=== PATIENT | female | born 1930 | race Caucasian/White ===

== ENCOUNTER 2018-11-13 11:10 | Emergency (ER) | payer MEDICARE, BC ==
--- NOTE | 2018-11-13 11:27 | ER Document Report ---
ED Medical Screen (RME) - General Chief Complaint: Chest Pain Stated Complaint: CHEST PAIN Time Seen by Provider: 11/13/18 11:21 Primary Care Provider: MICHELE LEAL MD [Primary Care Provider] - Follow up as needed Notes: 88-year-old female patient with a dual-chamber pacemaker, hyperlipidemia, no known coronary artery disease. Reports onset this morning of a banging headache on the top of her head and across her eyes, then she developed a burning sensation in her chest throat and jaw. She also complained of some blurred vision with her headache. While she was in the waiting room she reports she burped and it came up better tasting. I have greeted and performed a rapid initial assessment of this patient. A comprehensive ED assessment and evaluation of the patient, analysis of test results and completion of the medical decision making process will be conducted by additional ED providers. I have greeted and performed a rapid initial assessment of this patient. A comprehensive ED assessment and evaluation of the patient, analysis of test results and completion of the medical decision making process will be conducted by additional ED providers. TRAVEL OUTSIDE OF THE [place] IN LAST 30 DAYS: No - Related Data Allergies/Adverse Reactions: adhesive tape Allergy (Verified 11/13/18 11:21) Physical Exam - Vital signs Vitals: Temp Pulse Resp BP Pulse Ox 97.8 F 92 16 168/100 H 98 11/13/18 11:20 11/13/18 11:20 11/13/18 11:20 11/13/18 11:20 11/13/18 11:20 Course - Vital Signs Vital signs: Temp Pulse Resp BP Pulse Ox 97.8 F 92 16 168/100 H 98 11/13/18 11:20 11/13/18 11:20 11/13/18 11:20 11/13/18 11:20 11/13/18 11:20 Doctor's Discharge - Discharge Referrals: MICHELE LEAL MD [Primary Care Provider] - Follow up as needed
[2018-11-13 11:54] LABS: ABSOLUTE BASOPHILS # (AUTO) 0.1 10^3/uL (0.0-0.2); ABSOLUTE EOSINOPHILS # (AUTO) 0.2 10^3/uL (0.0-0.6); ABSOLUTE LYMPHOCYTES (AUTO) 3.4 10^3/uL (0.5-4.7); ABSOLUTE MONOCYTES (AUTO) 0.7 10^3/uL (0.1-1.4); ABSOLUTE NEUT (AUTO) 3.8 10^3/uL (1.7-8.2); BASOPHILS % (AUTO) 0.9 % (0-2); EOSINOPHILS % (AUTO) 2.1 % (0-6); HEMATOCRIT 42.4 % (36.0-47.0); HEMOGLOBIN 14.3 g/dL (12.0-15.5); LYMPHOCYTES % (AUTO) 41.6 % (13-45); MEAN CORPUSCULAR HEMOGLOBIN 31.4 pg (27.0-33.4); MEAN CORPUSCULAR HGB CONC 33.7 g/dL (32.0-36.0); MEAN CORPUSCULAR VOLUME 93 fl (80-97); MONOCYTES % (AUTO) 8.6 % (3-13); PLATELET COUNT 125 10^3/uL (150-450); RED BLOOD COUNT 4.55 10^6/uL (3.72-5.28); RED CELL DISTRIBUTION WIDTH 15.5 % (11.5-14.0); SEGMENTED NEUTROPHILS % (AUTO) 46.8 % (42-78); TOTAL CELLS COUNTED % (AUTO) 100 %; WHITE BLOOD COUNT 8.1 10^3/uL (4.0-10.5)
[2018-11-13 11:58] LABS: AMORPHOUS SEDIMENT,URINE TRACE /HPF; APPEARANCE,URINE CLOUDY; BILIRUBIN,URINE NEGATIVE (NEGATIVE); COLOR,URINE YELLOW; GLUCOSE, URINE NEGATIVE (NEGATIVE); KETONES,URINE NEGATIVE (NEGATIVE); LEUKOCYTE ESTERASE,URINE NEGATIVE (NEGATIVE); NITRITE,URINE NEGATIVE (NEGATIVE); PROTEIN,URINE NEGATIVE (NEGATIVE); URINE SPECIFIC GRAVITY 1.009; UROBILINOGEN,URINE NEGATIVE mg/dL (<2.0)
[2018-11-13 12:11] LABS: ALANINE AMINOTRANSFERASE 40 U/L (9-52); ALBUMIN 4.3 g/dL (3.5-5.0); ALKALINE PHOSPHATASE 90 U/L (38-126); ANION GAP 8 (5-19); ASPARTATE AMINO TRANSFERASE 45 U/L (14-36); BILIRUBIN,DIRECT 0.1 mg/dL (0.0-0.4); BILIRUBIN,TOTAL 0.5 mg/dL (0.2-1.3); BLOOD UREA NITROGEN 19 mg/dL (7-20); CALCIUM 10.9 mg/dL (8.4-10.2); CARBON DIOXIDE 31 mmol/L (22-30); CHLORIDE 104 mmol/L (98-107); CREATINE KINASE 61 U/L (30-135); GLUCOSE 86 mg/dL (75-110); POTASSIUM 4.2 mmol/L (3.6-5.0); SODIUM 142.8 mmol/L (137-145); TOTAL PROTEIN 7.6 g/dL (6.3-8.2)
--- NOTE | 2018-11-13 12:14 | RADIOLOGY REPORT (SQ) ---
EXAM DESCRIPTION: CHEST SINGLE VIEW COMPLETED DATE/TIME: 11/13/2018 12:08 pm REASON FOR STUDY: Chest pain COMPARISON: None. EXAM PARAMETERS: NUMBER OF VIEWS: One view. TECHNIQUE: Single frontal radiographic view of the chest acquired. RADIATION DOSE: NA LIMITATIONS: None. FINDINGS: LUNGS AND PLEURA: No opacities, masses or pneumothorax. No pleural effusion. MEDIASTINUM AND HILAR STRUCTURES: No masses. Contour normal. HEART AND VASCULAR STRUCTURES: Heart normal in size. Normal vasculature. BONES: No acute findings. HARDWARE: Battery pack and leads are in place. OTHER: No other significant finding. IMPRESSION: NO ACUTE RADIOGRAPHIC FINDING IN THE CHEST. TECHNICAL DOCUMENTATION: JOB ID: [id number] [employer]- All Rights Reserved Reading location - IP/workstation name: [email or web address]
[2018-11-13 12:23] LABS: CREATINE KINASE MB 2.38 ng/mL (<4.55); TROPONIN I 0.019 ng/mL
--- NOTE | 2018-11-13 13:22 | RADIOLOGY REPORT (SQ) ---
EXAM DESCRIPTION: CT HEAD WITHOUT COMPLETED DATE/TIME: 11/13/2018 1:16 pm REASON FOR STUDY: headache COMPARISON: None. TECHNIQUE: Axial images acquired through the brain without intravenous contrast. Images reviewed wi th bone, brain and subdural windows. Additional sagittal and coronal reconstructions were generated. Images stored on PACS. All CT scanners at this facility use dose modulation, iterative reconstruction, and/or weight based d osing when appropriate to reduce radiation dose to as low as reasonably achievable (ALARA). [facility]: Dose Right [facility]: CareDose [facility]: Dose Right [facility]: Teradose 4D [facility]: [employer] RADIATION DOSE: CT Rad equipment meets quality standard of care and radiation dose reduction techniq ues were employed. CTDIvol: 53.2 mGy. DLP: 1070 mGy-cm. mGy. LIMITATIONS: None. FINDINGS: VENTRICLES: Normal size and contour. CEREBRUM: No masses. No hemorrhage. No midline shift. No evidence for acute infarction. Few scatte red areas of low density in the white matter most likely chronic small vessel ischemic changes. CEREBELLUM: No masses. No hemorrhage. No alteration of density. No evidence for acute infarction. EXTRAAXIAL SPACES: No fluid collections. No masses. ORBITS AND GLOBE: No intra- or extraconal masses. Normal contour of globe without masses. CALVARIUM: No fracture. PARANASAL SINUSES: No fluid or mucosal thickening. SOFT TISSUES: No mass or hematoma. OTHER: No other significant finding. IMPRESSION: No acute intracranial pathology. No noncontrast CT findings to explain headache. Small vessel white matter disease. EVIDENCE OF ACUTE STROKE: NO. COMMENT: Quality ID # [id number]: Final reports with documentation of one or more dose reduction techniques (e.g., Automated exposure control, adjustment of the mA and/or kV according to patient size, use of iterative reconstruction technique) TECHNICAL DOCUMENTATION: JOB ID: [id number] [employer]- All Rights Reserved Reading location - IP/workstation name: [email or web address]
--- NOTE | 2018-11-13 15:08 | ER Document Report ---
Entered by DANNA STALEY SCRIBE 11/13/18 1232 Acting as scribe for:UYEN MONTES DO ED General - General Chief Complaint: Chest Pain Stated Complaint: CHEST PAIN Time Seen by Provider: 11/13/18 11:21 Primary Care Provider: MICHELE LEAL MD [Primary Care Provider] - Follow up tomorrow Information source: Patient Notes: 88-year-old female who presents to the emergency department today with complaints of a chest and throat "burning" sensation with an associated headache and blurred vision. Patient mentions that she has had a "rough week". Patient states that multiple things have happened over the last week including her dog getting sick, a sink leaking, and a follow up appointment for her known skin cancer. Patient denies any difficulty talking or confusion during this. TRAVEL OUTSIDE OF THE [place] IN LAST 30 DAYS: No - Related Data Allergies/Adverse Reactions: adhesive tape Allergy (Verified 11/13/18 11:21) Past Medical History - General Information source: Patient, [facility] Records - Social History Smoking Status: Never Smoker Cigarette use (# per day): No Chew tobacco use (# tins/day): No Frequency of alcohol use: None Drug Abuse: None Lives with: Family Family History: Reviewed & Not Pertinent Patient has suicidal ideation: No Patient has homicidal ideation: No - Past Medical History Cardiac Medical History: Reports: Hx Hypertension Psychiatric Medical History: Reports: Hx Depression Past Surgical History: Reports: Hx Cardiac Surgery - pacemaker, Hx Hysterectomy, Hx Orthopedic Surgery - left shoulder Review of Systems - Review of Systems Constitutional: No symptoms reported EENT: See HPI, Blurred vision Cardiovascular: See HPI, Chest pain - described as a burning sensation Respiratory: No symptoms reported Gastrointestinal: No symptoms reported Genitourinary: No symptoms reported Female Genitourinary: No symptoms reported Musculoskeletal: No symptoms reported Skin: No symptoms reported Hematologic/Lymphatic: No symptoms reported Neurological/Psychological: See HPI, Headaches. denies: Confusion -: Yes All other systems reviewed and negative Physical Exam - Vital signs Vitals: Temp Pulse Resp BP Pulse Ox 97.8 F 92 16 168/100 H 98 11/13/18 11:20 11/13/18 11:20 11/13/18 11:20 11/13/18 11:20 11/13/18 11:20 Interpretation: Normal - General General appearance: Appears well, Alert - HEENT Head: Normocephalic, Atraumatic Eyes: Normal Pupils: PERRL - Respiratory Respiratory status: No respiratory distress Chest status: Nontender, Other - pacemaker in L chest Breath sounds: Normal Chest palpation: Normal - Cardiovascular Rhythm: Regular Heart sounds: Normal auscultation Murmur: No - Abdominal Inspection: Normal Distension: No distension Bowel sounds: Normal Tenderness: Nontender Organomegaly: No organomegaly - Back Back: Normal, Nontender - Extremities General upper extremity: Normal inspection, Nontender, Normal color, Normal ROM, Normal temperature General lower extremity: Normal inspection, Nontender, Normal color, Normal ROM, Normal temperature, Normal weight bearing. No: Little's sign - Neurological Neuro grossly intact: Yes Cognition: Normal Orientation: AAOx4 Lucia Coma Scale Eye Opening: Spontaneous [place] Coma Scale Verbal: Oriented [place] Coma Scale Motor: Obeys Commands Lucia Coma Scale Total: 15 Speech: Normal Motor strength normal: LUE, RUE, LLE, RLE Sensory: Normal - Psychological Associated symptoms: Normal affect, Normal mood - Skin Skin Temperature: Warm Skin Moisture: Dry Skin Color: Normal Course - Re-evaluation Re-evalutation: 11/13/18 15:06 Patient appears well and has had no further symptoms. Pacemaker has been in terrogated with no events. Patient with no acute findings on blood work including 2- troponins. EKG with paced rhythm. Imaging within normal limits. Patient feels well would like to go home. She is to follow-up with her doctor on Friday. Return sooner if any worsening or concerning symptoms. - Vital Signs Vital signs: Temp Pulse Resp BP Pulse Ox 98.4 F 92 20 132/72 H 96 11/13/18 14:02 11/13/18 11:20 11/13/18 13:01 11/13/18 13:01 11/13/18 13:01 - Laboratory Result Diagrams: 11/13/18 11:40 11/13/18 11:40 Laboratory results interpreted by me: 11/13/18 11/13/18 11/13/18 11:40 11:40 11:40 RDW 15.5 H Plt Count 125 L Carbon Dioxide 31 H Est GFR ( Amer) 54 L Est GFR (Non-Af Amer) 45 L Calcium 10.9 H AST 45 H Urine Ascorbic Acid 20 H - Diagnostic Test Radiology reviewed: Reports reviewed Discharge - Discharge Clinical Impression: Atypical chest pain Headache Qualifiers: Headache type: tension-type Headache chronicity pattern: acute headache Intractability: not intractable Qualified Code(s): G44.209 - Tension-type headache, unspecified, not intractable Condition: Stable Disposition: HOME, SELF-CARE Instructions: Chest Pain of Unclear Cause ([facility]) Referrals: MICHELE LEAL MD [Primary Care Provider] - Follow up tomorrow Scribe Attestation: 11/13/18 15:07 I personally performed the services described in the documentation, reviewed and edited the documentation which was dictated to the scribe in my presence, and it accurately records my words and actions. I personally performed the services described in the documentation, reviewed and edited the documentation which was dictated to the scribe in my presence, and it accurately records my words and actions.
[2018-11-13 15:33] VITALS: BP 134/86
--- NOTE | 2018-11-13 23:03 | EKG REPORT ---
SEVERITY:- ABNORMAL ECG - A-V DUAL-PACED RHYTHM WITH SOME INHIBITION : Confirmed by: Giovanny Adair 13-Nov-2018 23:03:23
== END 2018-11-13 15:34 | disposition home or self-care (01) ==
LOC: ER 11:10
DX: R07.89 Other chest pain (principal); G44.209 Tension-type headache, unspecified, not intractable; H53.8 Other visual disturbances; I10 Essential (primary) hypertension
CPT/HCPCS: 36415; 70450; 71045; 80053; 81001; 82550; 82553; 84484; 85025; 93005; 93010; 99285

== ENCOUNTER → 2019-06-01 | Outpatient (CLI) | payer MEDICARE, BC ==
--- NOTE | 2019-06-02 14:03 | RADIOLOGY REPORT (SQ) ---
EXAM DESCRIPTION: CT SOFT TISSUE NECK WITH COMPLETED DATE/TIME: 06/01/2019 10:01 am REASON FOR STUDY: (J39.2)OTHER DISEASES OF PHARYNX J39.2 OTHER DISEASES OF PHARYNX COMPARISON: None. TECHNIQUE: Post IV contrasted scanning from skull base through lung apices with review of bone, soft tissue and lung windows. Reconstructed coronal and sagittal MPR images reviewed. All images stored on PACS. All CT scanners at this facility use dose modulation, iterative reconstruction, and/or weight based d osing when appropriate to reduce radiation dose to as low as reasonably achievable (ALARA). [facility]: Dose Right [facility]: CareDose [facility]: Dose Right [facility]: Teradose 4D [facility]: [employer] CONTRAST TYPE AND DOSE: 75mL Omnipaque 350 RENAL FUNCTION: Creatinine 1.2 RADIATION DOSE: mGy. LIMITATIONS: None. FINDINGS: SKULL BASE: Intact. MAJOR SALIVARY GLANDS: No solid or cystic masses. Subcentimeter nodules within the parotid glands, l ikely intraparotid lymph nodes. No inflammatory changes. LYMPHADENOPATHY: No adenopathy. MUCOSAL MASSES OR ASYMMETRY: No mucosal masses or asymmetry. LARYNX/CORDS: No abnormal findings. VASCULAR STRUCTURES: Major vessels are patent. Scattered atherosclerosis at the bilateral carotid bi furcations and cavernous internal carotid arteries. LUNG APICES: Calcifications scarring along the peripheral left upper lobe. Partially visualized left -sided cardiac pacer. . BONES: No acute bony abnormality. No suspicious osseous lesions. 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 Associated multilevel osteophytes. Multileve l facet arthropathy throughout the cervical spine. THYROID: Normal size. No masses. PARANASAL SINUSES: Clear. OTHER: Bilateral cataract surgery. IMPRESSION: No evidence of discrete mass, focal collection or cervical adenopathy. Chronic findings as above. TECHNICAL DOCUMENTATION: JOB ID: [id number] [facility] [place] [id number]: Final reports with documentation of one or more dose reduction techniques (e.g., Automate d exposure control, adjustment of the mA and/or kV according to patient size, use of iterative recons truction technique) 2010 [email or web address]- All Rights Reserved Reading location - IP/workstation name: [email or web address]
== END ==
LOC: RAD 09:15
PROVIDERS: ATTEND Otolaryngology
DX: J39.2 Other diseases of pharynx (principal)
CPT/HCPCS: 70491; 82565

== ENCOUNTER 2020-09-03 11:55 | Emergency (ER) | payer MEDICARE, BC ==
--- NOTE | 2020-09-03 13:24 | ER Document Report ---
ED Medical Screen (RME) - General Chief Complaint: Fall Injury Stated Complaint: FALL/BACK PAIN Time Seen by Provider: 09/03/20 13:19 Primary Care Provider: MICHELE LEAL MD [Primary Care Provider] - Follow up as needed Notes: HPI: 89-year-old female brought for evaluation of injury sustained in a fall. Fall was from standing position. She was attempting to get her puppy up into a chair and fell backwards. She is unsure of whether she hit the back of her head on the ground but does complain of pain to the back of the head on the right side. Patient landed on the right side. States she was able to stand without hip discomfort afterwards. Complains of pain to the posterior right ribs as well as the right lateral flank and abdomen. PHYSICAL EXAMINATION: There is bruising with tenderness along the posterior right ribs. There is tenderness in the right flank and right abdomen on palpation. Patient is able to fully range the bilateral upper extremities without restriction or discomfort. No visible hematoma on the scalp in triage. Discussed with Dr. Ferreira I have greeted and performed a rapid initial assessment of this patient. A comprehensive ED assessment and evaluation of the patient, analysis of test results and completion of medical decision making process will be conducted by an additional ED providers. Please note that clinical decision making for this patient was made during the 2019 pandemic of novel coronavirus which caused a significant strain on the healthcare system including at this particular facility. Criteria for admission discharge and level of care decisions as well as treatment decisions have necessarily changed TRAVEL OUTSIDE OF THE [place] IN LAST 30 DAYS: No - Related Data Allergies/Adverse Reactions: adhesive tape Allergy (Verified 11/13/18 11:21) Past Medical History - Past Medical History Cardiac Medical History: Reports: Hx Hypertension Renal/ Medical History: Denies: Hx Peritoneal Dialysis Psychiatric Medical History: Reports: Hx Depression Past Surgical History: Reports: Hx Cardiac Surgery - pacemaker, Hx Hysterectomy, Hx Orthopedic Surgery - left shoulder Physical Exam - Vital signs Vitals: Temp Pulse Resp BP Pulse Ox 98.4 F 64 14 154/105 H 97 09/03/20 12:05 09/03/20 12:05 09/03/20 12:05 09/03/20 12:05 09/03/20 12:05 Course - Vital Signs Vital signs: Temp Pulse Resp BP Pulse Ox 98.4 F 64 14 154/105 H 97 09/03/20 12:05 09/03/20 12:05 09/03/20 12:05 09/03/20 12:05 09/03/20 12:05 Doctor's Discharge - Discharge Referrals: MICHELE LEAL MD [Primary Care Provider] - Follow up as needed
--- NOTE | 2020-09-03 14:50 | ER Document Report ---
ED Trauma/MVC - General Chief Complaint: Fall Injury Stated Complaint: FALL/BACK PAIN Time Seen by Provider: 09/03/20 13:19 Primary Care Provider: MICHELE LEAL MD [Primary Care Provider] - Follow up as needed Notes: HPI: 89-year-old female that presents today status post fall backwards from a standing position. Patient states she was trying to get her dog. She does not believe she hit her head but is unsure. She only takes aspirin as a blood thinner. She complains of pain mostly to her right mid back. She denies any cough or shortness of breath. She stood up with no pain to the hips. She denies any pain to the extremities. She denies any symptoms causing the fall other than losing her balance. ROS: See HPI All other review of systems reviewed and otherwise negative Reviewed vital signs and nursing note as charted by RN. PHYSICAL EXAM: CONSTITUTIONAL: Alert and oriented and responds appropriately to questions. Well-appearing; well-nourished HEAD: Normocephalic; atraumatic EYES: PERRL; Conjunctivae clear, sclerae non-icteric ENT: Normal nose; no rhinorrhea; moist mucous membranes; pharynx without lesions noted NECK: Supple without meningismus; non-tender; no cervical lymphadenopathy, no masses CARD: Regular rate and rhythm; no murmurs; symmetric distal pulses RESP: Normal chest excursion without splinting or tachypnea; some mild tenderness and bruising to the right posterior edge of the ribs; no obvious crepitus; breath sounds clear and equal bilaterally; no wheezes, no rhonchi, no rales ABD/GI: Normal bowel sounds; non-distended; soft, non-tender BACK: The back appears normal and is non-tender to palpation EXT: Normal ROM in all joints; non-tender to palpation; no edema SKIN: No acute lesions noted NEURO: CN 2-12 intact; 5/5 bilateral upper and lower extremity strength with sensation intact to light touch PSYCH: The patient's mood and manner are appropriate. Grooming and personal hygiene are appropriate. TRAVEL OUTSIDE OF THE [place] IN LAST 30 DAYS: No - Related Data Allergies/Adverse Reactions: adhesive tape Allergy (Verified 11/13/18 11:21) Past Medical History - Social History Smoking Status: Unknown if Ever Smoked Family History: Reviewed & Not Pertinent - Past Medical History Cardiac Medical History: Reports: Hx Hypertension Renal/ Medical History: Denies: Hx Peritoneal Dialysis Psychiatric Medical History: Reports: Hx Depression Past Surgical History: Reports: Hx Cardiac Surgery - pacemaker, Hx Hysterectomy, Hx Orthopedic Surgery - left shoulder Physical Exam - Vital signs Vitals: Temp Pulse Resp BP Pulse Ox 98.4 F 64 14 154/105 H 97 09/03/20 12:05 09/03/20 12:05 09/03/20 12:05 09/03/20 12:05 09/03/20 12:05 Course - Re-evaluation Re-evalutation: 09/03/20 14:50 Given the patient's age and comorbidities, a full CT scan panel was ordered in triage as well as basic labs. Patient denies any weakness or numbness. She has full flexion and extension of bilateral hips. 09/03/20 17:23 Labs and imaging as recorded. No change in exam. Vital signs are stable. Patient will be discharged home with strict return precautions and follow-up with the primary care physician. - Vital Signs Vital signs: Temp Pulse Resp BP Pulse Ox 98.4 F 64 16 136/77 H 95 09/03/20 12:05 09/03/20 12:05 09/03/20 14:56 09/03/20 15:01 09/03/20 15:01 - Laboratory Results Result Diagrams: 09/03/20 14:51 09/03/20 14:51 Laboratory Results Interpreted: 09/03/20 09/03/20 09/03/20 14:51 14:51 15:30 RDW 15.1 H Plt Count 126 L Carbon Dioxide 33 H Anion Gap 4 L BUN 23 H Est GFR ( Amer) 59 L Est GFR (MDRD) Non-Af 48 L AST 40 H Urine Ascorbic Acid 40 H Critical Laboratory Results Reviewed: No Critical Results - Radiology Results Critical Radiology Results Reviewed: No Critical Results Discharge - Discharge Clinical Impression: Accidental fall Qualifiers: Encounter type: initial encounter Qualified Code(s): W19.XXXA - Unspecified fall, initial encounter Contusion of right back wall of thorax Qualifiers: Encounter type: initial encounter Qualified Code(s): S20.221A - Contusion of right back wall of thorax, initial encounter Condition: Good Disposition: HOME, SELF-CARE Additional Instructions: Come back immediately for any increased pain, change in location or quality of pain, weakness or numbness, change in mental status, or any other acute problems. Please follow-up with the pcp as we have discussed. Referrals: MICHELE LEAL MD [Primary Care Provider] - Follow up as needed
[2020-09-03 15:28] LABS: ABSOLUTE BASOPHILS # (AUTO) 0.1 10^3/uL (0.0-0.2); ABSOLUTE EOSINOPHILS # (AUTO) 0.2 10^3/uL (0.0-0.6); ABSOLUTE LYMPHOCYTES (AUTO) 3.1 10^3/uL (0.5-4.7); ABSOLUTE MONOCYTES (AUTO) 0.8 10^3/uL (0.1-1.4); ABSOLUTE NEUT (AUTO) 4.7 10^3/uL (1.7-8.2); BASOPHILS % (AUTO) 0.6 % (0-2); EOSINOPHILS % (AUTO) 1.8 % (0-6); HEMATOCRIT 38.6 % (36.0-47.0); LYMPHOCYTES % (AUTO) 35.3 % (13-45); MEAN CORPUSCULAR HEMOGLOBIN 31.5 pg (27.0-33.4); MEAN CORPUSCULAR HGB CONC 33.7 g/dL (32.0-36.0); MEAN CORPUSCULAR VOLUME 94 fl (80-97); MONOCYTES % (AUTO) 9.5 % (3-13); PLATELET COUNT 126 10^3/uL (150-450); RED BLOOD COUNT 4.13 10^6/uL (3.72-5.28); RED CELL DISTRIBUTION WIDTH 15.1 % (11.5-14.0); SEGMENTED NEUTROPHILS % (AUTO) 52.8 % (42-78); TOTAL CELLS COUNTED % (AUTO) 100 %; WHITE BLOOD COUNT 8.9 10^3/uL (4.0-10.5)
[2020-09-03 15:32] LABS: INTERNATIONAL RATION (INR) 0.99; PROTHROMBIN TIME 13.3 SEC (11.4-15.4)
[2020-09-03 15:44] LABS: ALBUMIN 3.9 g/dL (3.5-5.0); ALKALINE PHOSPHATASE 69 U/L (38-126); ASPARTATE AMINO TRANSFERASE 40 U/L (14-36); BILIRUBIN,DIRECT 0.1 mg/dL (0.0-0.4); BILIRUBIN,TOTAL 0.5 mg/dL (0.2-1.3); BLOOD UREA NITROGEN 23 mg/dL (7-20); CALCIUM 10.2 mg/dL (8.4-10.2); CARBON DIOXIDE 33 mmol/L (22-30); CHLORIDE 104 mmol/L (98-107); GLUCOSE 89 mg/dL (75-110); POTASSIUM 4.2 mmol/L (3.6-5.0); TOTAL PROTEIN 6.5 g/dL (6.3-8.2)
[2020-09-03 15:47] LABS: ANION GAP 4 (5-19)
[2020-09-03 16:15] LABS: AMORPHOUS SEDIMENT,URINE TRACE /HPF; APPEARANCE,URINE CLOUDY; BILIRUBIN,URINE NEGATIVE (NEGATIVE); COLOR,URINE YELLOW; GLUCOSE, URINE NEGATIVE (NEGATIVE); KETONES,URINE NEGATIVE (NEGATIVE); LEUKOCYTE ESTERASE,URINE NEGATIVE (NEGATIVE); NITRITE,URINE NEGATIVE (NEGATIVE); PROTEIN,URINE NEGATIVE (NEGATIVE); URINE SPECIFIC GRAVITY 1.015; UROBILINOGEN,URINE NEGATIVE mg/dL (<2.0)
--- NOTE | 2020-09-03 16:34 | RADIOLOGY REPORT (SQ) ---
EXAM DESCRIPTION: CT HEAD WITHOUT IMAGES COMPLETED DATE/TIME: 09/03/2020 3:14 pm REASON FOR STUDY: trauma COMPARISON: 11/13/2018. TECHNIQUE: Axial images acquired through the brain without intravenous contrast. Images reviewed wi th bone, brain and subdural windows. Additional sagittal and coronal reconstructions were generated. Images stored on PACS. All CT scanners at this facility use dose modulation, iterative reconstruction, and/or weight based d osing when appropriate to reduce radiation dose to as low as reasonably achievable (ALARA). [facility]: Dose Right [facility]: CareDose [facility]: Dose Right [facility]: Teradose 4D [facility]: [employer] RADIATION DOSE: CT Rad equipment meets quality standard of care and radiation dose reduction techniq ues were employed. CTDIvol: 53.2 mGy. DLP: 991 mGy-cm. mGy. LIMITATIONS: None. FINDINGS: VENTRICLES: Normal size and contour. CEREBRUM: No masses. No hemorrhage. No midline shift. No evidence for acute infarction. Normal gra y-white matter differentiation. Mild diffuse periventricular and deep white matter hypodense attenua tion consistent with mild chronic small vessel ischemic change. There is intracranial atherosclerosi s. CEREBELLUM: No masses. No hemorrhage. No alteration of density. No evidence for acute infarction. EXTRAAXIAL SPACES: No fluid collections. No masses. ORBITS AND GLOBE: No intra- or extraconal masses. Normal contour of globe without masses. CALVARIUM: No fracture. PARANASAL SINUSES: No fluid or mucosal thickening. SOFT TISSUES: No mass or hematoma. OTHER: No other significant finding. IMPRESSION: 1. No acute intracranial hemorrhage, mass, or evidence of acute territorial infarct. 2. Mild chronic small vessel ischemic change and intracranial atherosclerosis, stable. EVIDENCE OF ACUTE STROKE: NO. COMMENT: Quality ID # [id number]: Final reports with documentation of one or more dose reduction techniques (e.g., Automated exposure control, adjustment of the mA and/or kV according to patient size, use of iterative reconstruction technique) TECHNICAL DOCUMENTATION: JOB ID: [id number] [employer]- All Rights Reserved Reading location - IP/workstation name: [email or web address]
--- NOTE | 2020-09-03 16:59 | RADIOLOGY REPORT (SQ) ---
EXAM DESCRIPTION: CT CERVICAL SPINE WITHOUT IMAGES COMPLETED DATE/TIME: 09/03/2020 3:14 pm REASON FOR STUDY: trauma COMPARISON: None. TECHNIQUE: Axial images acquired through the cervical spine without intravenous contrast. Images re viewed with lung, soft tissue and bone windows. Reconstructed coronal and sagittal MPR images review ed. Images stored on PACS. All CT scanners at this facility use dose modulation, iterative reconstruction, and/or weight based d osing when appropriate to reduce radiation dose to as low as reasonably achievable (ALARA). [facility]: Dose Right [facility]: CareDose [facility]: Dose Right [facility]: Teradose 4D [facility]: [employer] RADIATION DOSE: CT Rad equipment meets quality standard of care and radiation dose reduction techniq ues were employed. CTDIvol: 10.3 mGy. DLP: 194 mGy-cm. mGy. LIMITATIONS: None. FINDINGS: ALIGNMENT: Retrolisthesis C5 on C6 approximately 5 mm, on the basis of chronic degenerativ e change. MINERALIZATION: Normal. VERTEBRAL BODIES: There is no acute fracture or cortical disruption. Marginal osteophytes most promi nent at C5-C6. Endplate sclerosis inferior endplate C5 and superior endplate C6. DISCS: Degenerative disc disease with loss of intervertebral disc heights. FACETS, LATERAL MASSES, POSTERIOR ELEMENTS: There is chronic fusion right C4-C5 the sets. Multilevel facet arthropathy and uncovertebral spurring. Probable severe right neural foraminal stenosis secon lorelei to facet arthropathy and uncovertebral spurring at right C5-C6. HARDWARE: Partial visualization pacemaker hardware in the upper chest. VISUALIZED RIBS: No fractures. LUNG APICES AND SOFT TISSUES: Biapical pleural and parenchymal scarring. OTHER: No other significant finding. IMPRESSION: No acute fracture or dislocation of the cervical spine. Multilevel spondylolisthesis, f acet arthropathy, degenerative disc disease and spondylosis. TECHNICAL DOCUMENTATION: JOB ID: [id number] Quality ID # 436: Final reports with documentation of one or more dose reduction techniques (e.g., Au tomated exposure control, adjustment of the mA and/or kV according to patient size, use of iterative reconstruction technique) 2010 [employer]- All Rights Reserved Reading location - IP/workstation name: [email or web address]
--- NOTE | 2020-09-03 17:07 | RADIOLOGY REPORT (SQ) ---
EXAM DESCRIPTION: CT CHEST WITH; CT ABD/PELVIS WITH IV ONLY IMAGES COMPLETED DATE/TIME: 09/03/2020 3:18 pm REASON FOR STUDY: trauma COMPARISON: None. CONTRAST TYPE AND DOSE: contrast/concentration: Isovue 350.00 mmol/ml; Total Contrast Delivered: 62. 0 ml; Total Saline Delivered: 65.0 ml RENAL FUNCTION: GFR > 60. TECHNIQUE: CT scan of the chest performed using helical scanning technique with dynamic intravenous contrast injection. Images reviewed with lung, soft tissue and bone windows. Reconstructed coronal a nd sagittal MPR images reviewed. All images stored on PACS. CT scan of the abdomen and pelvis performed with intravenous and oral contrast using helical scanning technique with dynamic intravenous contrast injection. Images reviewed with lung, soft tissue and b one windows. Reconstructed coronal and sagittal MPR images reviewed. Delayed images for evaluation of the urinary system also acquired and evaluated. All images stored on PACS. All CT scanners at this facility use dose modulation, iterative reconstruction, and/or weight based d osing when appropriate to reduce radiation dose to as low as reasonably achievable (ALARA). [facility]: Dose Right [facility]: CareDose [facility]: Dose Right [facility]: Teradose 4D [facility]: Smart [employer] RADIATION DOSE: CT Rad equipment meets quality standard of care and radiation dose reduction techniq ues were employed. CTDIvol: 8.8 - 13.6 mGy. DLP: 1376 mGy-cm. . LIMITATIONS: None. FINDINGS: CHEST: AXILLAE: No adenopathy. CHEST WALL: No masses. No subcutaneous air. LUNGS: Trachea has normal caliber and appearance. Background mild pulmonary emphysema. No focal con solidation or pleural effusion. Minimal dependent atelectasis at the lung bases. No significant joan und-glass attenuation. PLEURA: No effusions. Small left lateral pleural calcification may represent scarring. No other ple ural thickening. No pneumothorax. THYROID: Diminutive thyroid gland. HILAR AND MEDIASTINAL STRUCTURES: No identified masses or abnormal nodes. AORTA AND GREAT VESSELS: No aneurysm. No dissection. PULMONARY ARTERIES: No identified pulmonary emboli. Study not optimized for the pulmonary arteries. HEART: Moderate cardiomegaly. No pericardial effusion. HARDWARE AND LIFELINES: Left infraclavicular AICD with intact lead wires. BONES: Spondylosis and degenerative disc disease. No suspicious bone lesions. OTHER: No other significant finding. ABDOMEN AND PELVIS: LIVER: Liver has normal size and contour. No focal hepatic mass. No hepatic laceration or subcapsul ar hematoma. Hepatic and portal veins are patent. No biliary ductal dilation. SPLEEN: Normal size. No subcapsular hematoma or laceration. No focal lesions. PANCREAS: No masses. No significant calcifications. No adjacent inflammation or peripancreatic flui d collections. Pancreatic duct not dilated. GALLBLADDER: No identified stones by CT criteria. No inflammatory changes to suggest cholecystitis. ADRENAL GLANDS: No significant masses or asymmetry. RIGHT KIDNEY AND URETER: Normal size and position. No renal laceration or subcapsular hematoma. Lar ge exophytic right superior pole renal cyst. No solid renal mass. No significant calcifications. No hydronephrosis or hydroureter. LEFT KIDNEY AND URETER: Normal size and position. No renal laceration or subcapsular hematoma. No s olid or cystic renal mass. No significant calcifications. No hydronephrosis or hydroureter. AORTA AND VESSELS: No aneurysm. No dissection. Renal arteries, SMA, celiac without stenosis. RETROPERITONEUM: No retroperitoneal adenopathy, hemorrhage or masses. LARGE AND SMALL BOWEL: Scattered colonic diverticula without evidence of diverticulitis. Moderate st ool throughout the colon. No bowel obstruction. No bowel wall thickening. No significant inflammat ory change. APPENDIX: Normal. ABDOMINAL WALL: No hernia or masses. PERITONEAL CAVITY: No free air. No free fluid. No peritoneal implants or masses. PELVIS: Post hysterectomy. No adnexal mass. Urinary bladder is decompressed. Multiple calcified pe lvic phleboliths. No pelvic adenopathy or free fluid. BONES: Multilevel spondylosis and degenerative disc disease. No suspicious bone lesions. OTHER: No other significant finding. IMPRESSION: 1. No acute traumatic solid organ, vascular, or osseous injury in the chest, abdomen or pelvis. 2. Background mild pulmonary emphysema. No acute pulmonary disease. No pulmonary embolism. 3. Colonic diverticulosis without evidence of diverticulitis. 4. Right renal cortical cyst. 5. Multilevel degenerative disc disease and spondylosis in the thoracic and lumbar spine. No suspici ous bone lesions. TECHNICAL DOCUMENTATION: JOB ID: [id number] Quality ID # [id number]: Final reports with documentation of one or more dose reduction techniques (e.g., Au tomated exposure control, adjustment of the mA and/or kV according to patient size, use of iterative reconstruction technique) 2010 [employer]- All Rights Reserved Reading location - IP/workstation name: [email or web address]
[2020-09-03 17:37] VITALS: BP 137/79
== END 2020-09-03 17:37 | disposition home or self-care (01) ==
LOC: ER 11:55
DX: S20.221A Contusion of right back wall of thorax, initial encounter (principal); R51.9 Headache, unspecified; R10.9 Unspecified abdominal pain; R07.81 Pleurodynia; M54.6 Pain in thoracic spine; W18.30XA Fall on same level, unspecified, initial encounter; I10 Essential (primary) hypertension; Z79.82 Long term (current) use of aspirin; Z90.710 Acquired absence of both cervix and uterus; Z95.0 Presence of cardiac pacemaker
CPT/HCPCS: 36415; 70450; 71260; 72125; 74177; 80053; 81001; 85025; 85610; 99285